=== PATIENT | female | born 1960 | race Caucasian/White ===

== ENCOUNTER 2018-03-13 13:17 | Emergency (ER) | payer BC ==
[~2018-03-13] VITALS: Ht 172.1 cm; Wt 83.9 kg
[2018-03-13 13:23] VITALS: Ht 172.1 cm; Wt 83.9 kg
[2018-03-13 18:13] VITALS: BP 115/66
== END 2018-03-13 18:14 | disposition home or self-care (01) ==
LOC: ED 13:17
DX: S89.81XA Other specified injuries of right lower leg, initial encounter (principal); S39.012A Strain of muscle, fascia and tendon of lower back, initial encounter; Z88.8 Allergy status to other drugs, medicaments and biological substances; Z86.73 Personal history of transient ischemic attack (TIA), and cerebral infarction without residual deficits; W19.XXXA Unspecified fall, initial encounter; Y93.89 Activity, other specified; Y92.009 Unspecified place in unspecified non-institutional (private) residence as the place of occurrence of the external cause; Y99.8 Other external cause status
CPT/HCPCS: 82962